=== PATIENT | female | born 1985 | race Hispanic/Latino ===

== ENCOUNTER 2021-06-14 13:48 | Emergency (ER) | payer SELFPAY ==
[2021-06-14 14:27] LABS: Urine Blood 3+ (Negative); Urine Glucose Negative (Negative); Urine Protein Negative (Negative); Urine pH 6.5 (5.0-7.0)
[2021-06-14 14:33] LABS: Absolute Lymphocytes (CBC) 2.2 K/uL (0.7-4.9); Hematocrit 41.9 % (36.0-45.0); MPV 8.8 fL (7.6-11.3); RBC Red Blood Cell Count 4.76 M/uL (3.86-4.86)
[2021-06-14 14:48] LABS: Urine Amorphous Sediment 1+ /HPF (NONE SEEN); Urine Bacteria 20-50 /HPF (<20); Urine Mucus SLIGHT /HPF (NONE SEEN); Urine RBC <5 /HPF (NONE SEEN)
[2021-06-14 15:06] LABS: BUN Blood Urea Nitrogen 5 mg/dL (7-18); Bicarbonate 20 mmol/L (21-32); Glucose Level 87 mg/dL (74-106); HCG, Quantitative 59060 mIU/mL (1-3); Potassium 3.4 mmol/L (3.5-5.1); Sodium Level 136 mmol/L (136-145)
--- NOTE | 2021-06-14 16:36 | RAD REPORT ---
EXAM DESCRIPTION: US - Transvaginal OB - 06/14/2021 3:39 pm CLINICAL HISTORY: with vaginal bleeding COMPARISON: None. FINDINGS: The uterus measures 10 x 6 x 5 centimeters. A gestational sac is present within the endom etrium measuring 2.1 x 1 x 2.8 centimeters. Within this is a pole crown-rump length 7 millimete rs. Cardiac activity 143 beats per minute. Tiny subchorionic bleed Neither ovary seen secondary to overlying bowel gas. The right and left adnexa unremarkable No significant free fluid IMPRESSION: Single live intrauterine with an estimated gestational age 6 weeks 1 day SUSHILA 1 04/04/2021
--- NOTE | 2021-06-14 17:03 | EDPHYS ---
Physician Documentation [facility] Name: Luda Mclean Age: 35 yrs Sex: Female : 1985 Arrival Date: 06/14/2021 Time: 13:52 Bed 8 Private MD: ED Physician Derek Herrera HPI: 06/14 14:07 This 35 yrs old Female presents to ER via Ambulatory with complaints of jmm Vaginal Bleeding. 14:07 The patient presents with vaginal bleeding that is. Onset: The symptoms/episode jmm began/occurred 1 day(s) ago. Modifying factors: The symptoms are alleviated by nothing, the symptoms are aggravated by nothing. Associated signs and symptoms: Pertinent positives: dysuria, Pertinent negatives: fever. DIRECTOR OF ADULT EPILEPSY: 13:58 LMP 05/01/2021 [place] 14:07 3, Living 2 jmm Historical: - Allergies: 14:00 No Known Allergies; [place] - Home Meds: 14:00 None [Active]; [place] - PMHx: 14:00 None; [place] - PSHx: 14:00 None; [place] - Immunization history:: Adult Immunizations up to date. - Social history:: Smoking status: Patient denies any tobacco usage or history of. ROS: 14:07 Constitutional: Negative for fever, chills, and weight loss, Cardiovascular: Negative jmm for chest pain, palpitations, and edema, Respiratory: Negative for shortness of breath, cough, wheezing, and pleuritic chest pain. 14:07 : Positive for vaginal bleeding. 14:07 All other systems are negative. Exam: 14:07 Constitutional: This is a well developed, well nourished patient who is awake, alert, jmm and in no acute distress. Head/Face: atraumatic. Eyes: EOMI, no conjunctival erythema appreciated ENT: Moist Mucus Membranes Neck: Trachea midline, Supple Chest/axilla: Normal chest wall appearance and motion. Cardiovascular: Regular rate and rhythm. No edema appreciated Respiratory: Normal respirations, no respiratory distress appreciated Abdomen/GI: Non distended, soft Back: Normal ROM Skin: General appearance color normal MS/ Extremity: Moves all extremities, no obvious deformities appreciated, no edema noted to the lower extremities Neuro: Awake and alert Psych: Behavior is normal, Mood is normal, Patient is cooperative and pleasant Vital Signs: 13:58 BP 102 / 67; Pulse 74; Resp 18; Temp 97.7(T); Pulse Ox 100% ; Weight 70.31 kg; Height 5 [place] ft. 4 in. (162.56 cm); 17:45 BP 119 / 79; Pulse 76; Resp 14 S; Pulse Ox 100% on R/A; jg9 13:58 Body Mass Index 26.61 (70.31 kg, 162.56 cm) [place] MDM: 14:18 Patient medically screened. [facility] 17:01 Data reviewed: vital signs, nurses notes. [facility] 17:01 Counseling: I had a detailed discussion with the patient and/or guardian regarding: the [facility] historical points, exam findings, and any diagnostic results supporting the discharge/admit diagnosis, lab results, radiology results, the need for outpatient follow up, to return to the emergency department if symptoms worsen or persist or if there are any questions or concerns that arise at home. ED course: Labs and imaging studies were mainly unremarkable. Patient will be treated for asymptomatic bacteriuria. Patient advised follow with DIRECTOR OF ADULT EPILEPSY in 2 to 3 days for reevaluation and repeat quantitative hCG in the ED. Patient otherwise given strict return precautions. Patient understood agrees plan of care.. 06/14 14:07 Order name: Basic Metabolic Panel; Complete Time: 15:51 [facility] 06/14 14:07 Order name: CBC with Diff; Complete Time: 14:39 [facility] 06/14 14:07 Order name: Quantitative Hcg; Complete Time: 15:51 [facility] 06/14 14:08 Order name: ABO/RH typing; Complete Time: 15:51 [facility] 06/14 14:27 Order name: Urine Dipstick-Ancillary; Complete Time: 14:30 [facility] 06/14 14:07 Order name: IV Saline Lock; Complete Time: 14:27 [facility] 06/14 14:07 Order name: Labs collected and sent; Complete Time: 14:27 [facility] 06/14 14:07 Order name: NPO; Complete Time: 14:49 [facility] 06/14 14:07 Order name: Urine Dipstick-Ancillary (obtain specimen); Complete Time: 14:27 [facility] 06/14 14:21 Order name: Transvaginal OB; Complete Time: 16:40 [facility] 06/14 14:28 Order name: Urine --Ancillary (enter results); Complete Time: 16:40 bd 06/14 14:28 Order name: Urine Microscopic Only; Complete Time: 14:51 iw Administered Medications: No medications were administered Disposition: 18:37 Co-signature as Attending Physician, Derek Herrera MD. rn Disposition Summary: 06/14/21 17:02 Discharge Ordered Location: Home [facility] Condition: Stable [facility] Diagnosis - Threatened [facility] Followup: [facility] - With: Private Physician - When: 2 - 3 days - Reason: Recheck today's complaints, Continuance of care, Repeat Beta-HCG (48 Hours), Re-evaluation by your physician Discharge Instructions: - Discharge Summary Sheet [facility] - Threatened Miscarriage [facility] Forms: - Medication Reconciliation Form [facility] - Thank You Letter [facility] - Antibiotic Education [facility] - Prescription Opioid Use [facility] Prescriptions: - Cephalexin 500 mg Oral Capsule - take 1 capsule by ORAL route every 8 hours for 7 days; 21 capsule; Refills: 0, jm Product Selection Permitted Signatures: Dispatcher [employer] EDMS Kevin Vasquez PA PA [facility] Derek Herrera MD MD rn Au-StagerKamla RN RN [place] Corrections: (The following items were deleted from the chart) 14:21 14:09 1st Trimest Single 1st Fetus+US.RAD.BRZ ordered. EDMS EDMS
--- NOTE | 2021-06-14 17:03 | ER ---
Nurse's Notes [facility] Name: Luda Mclean Age: 35 yrs Sex: Female : 1985 Arrival Date: 06/14/2021 Time: 13:52 Bed 8 Private MD: Diagnosis: Threatened Presentation: 06/14 13:58 Chief complaint: Patient states: pt presented to ED reporting about 8 weeks [place] having vaginal spotting x2 days. Coronavirus screen: Vaccine status: Patient reports receiving the 2nd dose of the covid vaccine. Ebola Screen: Patient denies travel to an Ebola-affected area in the 21 days before illness onset. Initial Sepsis Screen: Does the patient meet any 2 criteria? No. Patient's initial sepsis screen is negative. Does the patient have a suspected source of infection? No. Patient's initial sepsis screen is negative. Risk Assessment: Do you want to hurt yourself or someone else? Patient reports no desire to harm self or others. Onset of symptoms was June 13, 2021. 13:58 Method Of Arrival: Ambulatory [place] 13:58 Acuity: PRESTON 3 [place] Triage Assessment: 13:58 General: Appears in no apparent distress. Behavior is calm, cooperative. Pain: [place] Complains of pain in abdomen. : Reports vaginal bleeding that is. CHIEF COUNSEL: 13:58 LMP 05/01/2021 [place] 14:07 3, Living 2 [facility] Historical: - Allergies: 14:00 No Known Allergies; [place] - Home Meds: 14:00 None [Active]; [place] - PMHx: 14:00 None; [place] - PSHx: 14:00 None; [place] - Immunization history:: Adult Immunizations up to date. - Social history:: Smoking status: Patient denies any tobacco usage or history of. Screenin:00 Abuse screen: Denies threats or abuse. Denies injuries from another. Nutritional jg9 screening: No deficits noted. Tuberculosis screening: No symptoms or risk factors identified. Fall Risk None identified. Assessment: 15:00 Reassessment: No changes from previously documented assessment. jg9 17:00 : vaginal bleeding. jg9 Vital Signs: 13:58 BP 102 / 67; Pulse 74; Resp 18; Temp 97.7(T); Pulse Ox 100% ; Weight 70.31 kg; Height 5 [place] ft. 4 in. (162.56 cm); 17:45 BP 119 / 79; Pulse 76; Resp 14 S; Pulse Ox 100% on R/A; jg9 13:58 Body Mass Index 26.61 (70.31 kg, 162.56 cm) ED Course: 13:52 Patient arrived in ED. kz 13:58 Arm band placed on right wrist. [place] 14:00 Triage completed. 14:03 Kevin Vasquez PA is PHCP. [facility] 14:03 Derek Herrera MD is Attending Physician. [facility] 14:13 Lorna Sandhu, RN is Primary Nurse. jg9 14:31 Patient has correct armband on for positive identification. Bed in low position. Call [facility] light in reach. 14:31 Inserted saline lock: 20 gauge in left antecubital area, using aseptic technique. Blood 6 collected. 14:32 Initial lab(s) drawn, by ED staff, sent to lab. Urine collected: clean catch specimen. 6 15:39 Transvaginal OB In Process Unspecified. EDMS 17:59 No provider procedures requiring assistance completed. jg9 18:01 IV discontinued. jg9 Administered Medications: No medications were administered Outcome: 17:02 Discharge ordered by . [facility] 18:00 Discharged to home ambulatory. jg9 18:00 Condition: stable 18:00 Discharge instructions given to patient, Instructed on discharge instructions, follow up and referral plans. Demonstrated understanding of instructions, follow-up care, medications, Prescriptions given X 1, cephalexin ABX script given after discharged 18:01 Patient left the ED. jg9 Signatures: Dispatcher [employer] EDMA Kevin Vasquez PA PA jmm Hastedt, Jennifer, RN RONAK jh Lorna Sandhu, RONAK RN jg9 Keyona-StagerKamla RN RN ha Zapata, Kelly kz
[2021-06-14 19:25] VITALS: TEMP 97.7; O2SAT 100
[2021-06-14 19:26] VITALS: BP 119/79
== END 2021-06-14 18:01 | disposition home or self-care (01) ==
LOC: ER 13:48
DX: O20.0 Threatened abortion (principal); Z3A.01 Less than 8 weeks gestation of pregnancy
CPT/HCPCS: 36415; 76817; 80048; 81003; 81015; 81025; 84702; 85025; 86900; 86901; 99284